=== PATIENT | male | born 1975 | race African-American/Black ===

== ENCOUNTER 2018-01-23 01:35 | Emergency (ER) | payer SELFPAY ==
[2018-01-23 03:01] LABS: Absolute Lymphocytes (CBC) 2.2 K/uL (0.7-4.9); Absolute Monocytes 0.7 K/uL (0.1-1.3); Absolute Neutrophil 5.5 K/uL (1.8-8.0); Basophils % 0.1 % (0-1.3); Hematocrit 43.6 % (39.6-49.0); Lymphocytes % 25.7 % (15.3-44.8); MCH 31.2 pg (27.0-35.0); MCV 91.3 fL (80-100); MPV 9.5 fL (7.6-11.3); Monocytes % 8.2 % (3.3-12.3); Protime INR 1.01; RBC Red Blood Cell Count 4.78 M/uL (4.33-5.43)
[2018-01-23 03:18] LABS: ALT/SGPT 46 U/L (12-78); AST/SGOT 19 U/L (15-37); Albumin 3.8 g/dL (3.4-5.0); Alkaline Phosphatase 64 U/L (45-117); BUN Blood Urea Nitrogen 12 mg/dL (7-18); Bicarbonate 27 mmol/L (21-32); Bilirubin Direct < 0.1 mg/dL (0-0.2); Bilirubin Total 0.3 mg/dL (0.2-1.0); Glucose Level 133 mg/dL (74-106); Lipase 127 U/L (73-393); Magnesium 2.3 mg/dL (1.8-2.4); NT PRO-BNP 9 pg/mL (<125); Potassium 3.4 mmol/L (3.5-5.1); Protein, Total 7.9 g/dL (6.4-8.2); Sodium Level 141 mmol/L (136-145); Troponin (Emerg Dept Use Only) < 0.02 ng/mL (0.0-0.045)
[2018-01-23] MEDS ORDERED: SUCRALFATE 1 GM TABLET ONE (03:36)
--- NOTE | 2018-01-23 04:01 | EDPHYS ---
Physician Documentation [facility] Name: Kishore Mcrae Age: 42 yrs Sex: Male : 1975 Arrival Date: 01/23/2018 Time: 01:39 Bed 19 Private MD: Florian Anne ED Physician Shawn Brenner HPI: 01/23 03:54 This 42 yrs old Black Male presents to ER via Ambulatory with complaints of High Blood gs Pressure, Abdominal Pain. 03:54 The patient presents with abdominal pain in the epigastric area. Onset: The gs symptoms/episode began/occurred this morning, at 01:00. The symptoms do not radiate. Associated signs and symptoms: Pertinent negatives: chest pain. The symptoms are described as sharp. Modifying factors: The symptoms are alleviated by nothing, the symptoms are aggravated by nothing. Severity of pain: At its worst the pain was moderate in the emergency department the pain has improved markedly. The patient has not experienced similar symptoms in the past. Historical: - Allergies: 01:51 No Known Allergies; jd3 - Home Meds: 01:51 metoprolol tartrate 100 mg Oral tab 1 tab once daily [Active]; quinapril 40 mg Oral tab jd3 1 tab once daily [Active]; hydrochlorothiazide 25 mg Oral tab 1 tab once daily [Active]; - PMHx: 01:51 Hypertension; jd3 - PSHx: 01:51 None; jd3 - Immunization history:: Adult Immunizations up to date, Flu vaccine is not up to date. - Social history:: Smoking status: Patient/guardian denies using tobacco. - Ebola Screening: : Patient negative for fever greater than or equal to 101.5 degrees Fahrenheit, and additional compatible Ebola Virus Disease symptoms. ROS: 03:54 All other systems are negative. gs Exam: 03:54 Head/Face: Normocephalic, atraumatic. Eyes: Pupils equal round and reactive to light, gs extra-ocular motions intact. Lids and lashes normal. Conjunctiva and sclera are non-icteric and not injected. Cornea within normal limits. Periorbital areas with no swelling, redness, or edema. ENT: Nares patent. No nasal discharge, no septal abnormalities noted. Tympanic membranes are normal and external auditory canals are clear. Oropharynx with no redness, swelling, or masses, exudates, or evidence of obstruction, uvula midline. Mucous membranes moist. Neck: Trachea midline, no thyromegaly or masses palpated, and no cervical lymphadenopathy. Supple, full range of motion without nuchal rigidity, or vertebral point tenderness. No Meningismus. Chest/axilla: Normal chest wall appearance and motion. Nontender with no deformity. No lesions are appreciated. Cardiovascular: Regular rate and rhythm with a normal S1 and S2. No gallops, murmurs, or rubs. Normal PMI, no JVD. No pulse deficits. Respiratory: Lungs have equal breath sounds bilaterally, clear to auscultation and percussion. No rales, rhonchi or wheezes noted. No increased work of breathing, no retractions or nasal flaring. Back: No spinal tenderness. No costovertebral tenderness. Full range of motion. Skin: Warm, dry with normal turgor. Normal color with no rashes, no lesions, and no evidence of cellulitis. MS/ Extremity: Pulses equal, no cyanosis. Neurovascular intact. Full, normal range of motion. Neuro: Awake and alert, GCS 15, oriented to person, place, time, and situation. Cranial nerves II-XII grossly intact. Motor strength 5/5 in all extremities. Sensory grossly intact. Cerebellar exam normal. Normal gait. 03:54 Constitutional: The patient appears alert, awake. 03:54 ECG was reviewed by the Attending Physician. 03:54 Abdomen/GI: Palpation: mild abdominal tenderness, in the epigastric area and right upper quadrant. Vital Signs: 01:51 BP 161 / 120; Pulse 57; Resp 16 S; Temp 98.3(O); Pulse Ox 99% on R/A; Weight 117.93 kg jd3 (R); Height 5 ft. 6 in. (167.64 cm) (R); Pain 4/10; 02:48 BP 161 / 88; Pulse 62; Resp 15 S; Pulse Ox 99% on R/A; jd3 03:30 BP 157 / 98; Pulse 59; Resp 17 S; Pulse Ox 98% on R/A; jd3 04:27 BP 143 / 93; Pulse 55; Resp 16 S; Pulse Ox 98% on R/A; jd3 01:51 Body Mass Index 41.96 (117.93 kg, 167.64 cm) jd3 MDM: 02:11 Patient medically screened. gs 03:54 Differential diagnosis: cholecystitis, Cholelithiasis, gastritis, gastroesophageal gs reflux disease, non-specific abd pain, pancreatitis. Data reviewed: vital signs, nurses notes. Response to treatment: the patient's symptoms have markedly improved after treatment, and as a result, I will discharge patient. 01/23 02:15 Order name: Basic Metabolic Panel; Complete Time: 03:53 01/23 02:15 Order name: CBC with Diff; Complete Time: 03:53 01/23 02:15 Order name: LFT's; Complete Time: 03:53 01/23 02:15 Order name: Magnesium; Complete Time: 03:53 01/23 02:15 Order name: NT PRO-BNP; Complete Time: 03:53 01/23 02:15 Order name: PT-INR; Complete Time: 03:11 01/23 02:15 Order name: Troponin (emerg Dept Use Only); Complete Time: 03:53 01/23 02:15 Order name: XRAY Chest (1 view) 01/23 02:15 Order name: EKG; Complete Time: 02:16 01/23 02:15 Order name: Cardiac monitoring; Complete Time: 02:25 01/23 02:15 Order name: Lipase; Complete Time: 03:53 01/23 02:15 Order name: CT Stone Protocol 01/23 02:15 Order name: EKG - Nurse/Tech; Complete Time: 02:25 01/23 02:15 Order name: IV Saline Lock; Complete Time: 02:36 01/23 02:15 Order name: Labs collected and sent; Complete Time: 02:36 01/23 02:15 Order name: O2 Per Protocol; Complete Time: 02:25 01/23 02:15 Order name: O2 Sat Monitoring; Complete Time: 02:25 gs EC:54 Rate is 52 beats/min. Rhythm is regular. LA interval is normal. QRS interval is gs prolonged. QT interval is normal. T waves are Flattened. Clinical impression: NSR w/ Non-specific ST/T Changes. Interpreted by me. Administered Medications: 03:32 Drug: CarafATE 1 grams Route: PO; jd3 04:30 Follow up: Response: No adverse reaction jd3 04:32 Follow up: Response: No adverse reaction jd3 04:31 Not Given (Physician Discretion): Enalaprilat 1.25 mg IV at calculated rate once; (slow jd3 IV push) Disposition: 01/23/18 04:01 Discharged to Home. Impression: Epigastric pain, Essential (primary) hypertension. - Condition is Stable. - Discharge Instructions: Abdominal Pain, Adult, Managing Your Hypertension. - Prescriptions for Carafate 100 mg/mL Oral suspension - take 10 milliliter by ORAL route 3 times per day As needed; 150 milliliter. - Medication Reconciliation Form, Thank You Letter, Antibiotic Education, Prescription Opioid Use form. - Follow up: Florian Anne MD; When: 1 - 2 days; Reason: Re-evaluation by your physician. Signatures: Dispatcher [employer] Shawn Christian MD MD gs Davies, Jonathon RN RN jd3 Corrections: (The following items were deleted from the chart) 04:31 04:01 01/23/2018 04:01 Discharged to Home. Impression: Epigastric pain; Essential jd3 (primary) hypertension. Condition is Stable. Forms are Medication Reconciliation Form, Thank You Letter, Antibiotic Education, Prescription Opioid Use. Follow up: Florian Anne; When: 1 - 2 days; Reason: Re-evaluation by your physician.
--- NOTE | 2018-01-23 04:01 | ER ---
Nurse's Notes [facility] Name: Kishore Mcrae Age: 42 yrs Sex: Male : 1975 Arrival Date: 01/23/2018 Time: 01:39 Bed 19 Private MD: Florian Anne Diagnosis: Epigastric pain;Essential (primary) hypertension Presentation: 01/23 01:47 Presenting complaint: Patient states: "I am having some upper stomach pain with some jd3 nausea and my blood pressure is high for some reason.". Transition of care: patient was not received from another setting of care. Onset of symptoms was January 23, 2018. Risk Assessment: Do you want to hurt yourself or someone else? Patient reports no desire to harm self or others. Initial Sepsis Screen: Does the patient meet any 2 criteria? No. Patient's initial sepsis screen is negative. Does the patient have a suspected source of infection? No. Patient's initial sepsis screen is negative. Care prior to arrival: None. 01:47 Method Of Arrival: Ambulatory jd3 01:47 Acuity: AZUL 3 jd3 Historical: - Allergies: 01:51 No Known Allergies; jd3 - Home Meds: 01:51 metoprolol tartrate 100 mg Oral tab 1 tab once daily [Active]; quinapril 40 mg Oral tab jd3 1 tab once daily [Active]; hydrochlorothiazide 25 mg Oral tab 1 tab once daily [Active]; - PMHx: 01:51 Hypertension; jd3 - PSHx: 01:51 None; jd3 - Immunization history:: Adult Immunizations up to date, Flu vaccine is not up to date. - Social history:: Smoking status: Patient/guardian denies using tobacco. - Ebola Screening: : Patient negative for fever greater than or equal to 101.5 degrees Fahrenheit, and additional compatible Ebola Virus Disease symptoms. Screenin:55 Abuse screen: Denies threats or abuse. Nutritional screening: No deficits noted. jd3 Tuberculosis screening: No symptoms or risk factors identified. Fall Risk Ambulatory Aid- None/Bed Rest/Nurse Assist (0 pts). Gait- Normal/Bed Rest/Wheelchair (0 pts) Mental Status- Oriented to own ability (0 pts). Total Carrasco Fall Scale indicates No Risk (0-24 pts). Assessment: 01:52 General: Appears uncomfortable, Behavior is calm, cooperative, appropriate for age. jd3 Pain: Complains of pain in epigastric area Pain currently is 4 out of 10 on a pain scale. at worst was 6 out of 10 on a pain scale. Quality of pain is described as aching. Neuro: Level of Consciousness is awake, alert, obeys commands, Oriented to person, place, time, situation. Cardiovascular: Denies chest pain, Capillary refill < 3 seconds Patient's skin is warm and dry. Respiratory: Airway is patent Respiratory effort is even, unlabored, Respiratory pattern is regular, symmetrical, Denies shortness of breath. GI: Abdomen is round non-distended, Bowel sounds present X 4 quads. Abd is soft and non tender X 4 quads. Reports upper abdominal pain, nausea, Patient currently denies constipation, diarrhea. : No signs and/or symptoms were reported regarding the genitourinary system. EENT: No signs and/or symptoms were reported regarding the EENT system. Derm: Skin is intact, Skin is dry, Skin is normal, Skin temperature is warm. Musculoskeletal: Circulation, motion, and sensation intact. Range of motion: intact in all extremities. 01:59 Reassessment: No changes from previously documented assessment. Patient and/or family jd3 updated on plan of care and expected duration. Pain level reassessed. Patient is alert, oriented x 3, equal unlabored respirations, skin warm/dry/pink. provider at bedside. 02:48 Reassessment: Patient appears in no apparent distress at this time. No changes from jd3 previously documented assessment. Patient and/or family updated on plan of care and expected duration. Pain level reassessed. Patient is alert, oriented x 3, equal unlabored respirations, skin warm/dry/pink. blood pressure medication held per providers order. will reassess blood pressure. 03:30 Reassessment: Patient appears in no apparent distress at this time. No changes from jd3 previously documented assessment. Patient and/or family updated on plan of care and expected duration. Pain level reassessed. Patient is alert, oriented x 3, equal unlabored respirations, skin warm/dry/pink. 04:30 Reassessment: Patient appears in no apparent distress at this time. No changes from jd3 previously documented assessment. Patient and/or family updated on plan of care and expected duration. Pain level reassessed. Patient is alert, oriented x 3, equal unlabored respirations, skin warm/dry/pink. reported understanding of discharge instructions. Vital Signs: 01:51 BP 161 / 120; Pulse 57; Resp 16 S; Temp 98.3(O); Pulse Ox 99% on R/A; Weight 117.93 kg jd3 (R); Height 5 ft. 6 in. (167.64 cm) (R); Pain 4/10; 02:48 BP 161 / 88; Pulse 62; Resp 15 S; Pulse Ox 99% on R/A; jd3 03:30 BP 157 / 98; Pulse 59; Resp 17 S; Pulse Ox 98% on R/A; jd3 04:27 BP 143 / 93; Pulse 55; Resp 16 S; Pulse Ox 98% on R/A; jd3 01:51 Body Mass Index 41.96 (117.93 kg, 167.64 cm) jd3 ED Course: 01:39 Patient arrived in ED. ds1 01:39 Florian Anne MD is Private Physician. ds1 01:41 Vazquez Frederick, OSITO is Primary Nurse. jd3 01:43 Shawn Brenner MD is Attending Physician. gs 01:48 Triage completed. jd3 01:52 Arm band placed on. jd3 01:55 Patient has correct armband on for positive identification. Bed in low position. Call jd3 light in reach. Side rails up X 1. Adult w/ patient. 02:25 EKG done, by ED staff, reviewed by Shawn Brenner MD. jd3 02:32 Inserted saline lock: 20 gauge in right antecubital area, using aseptic technique. jd3 Blood collected. 02:45 X-ray completed. Portable x-ray completed in exam room. Patient tolerated procedure kw well. 02:46 XRAY Chest (1 view) In Process Unspecified. EDMS 02:[address] via wheelchair. kw1 03:01 CT Stone Protocol In Process Unspecified. EDMS 03:03 CT completed. Patient tolerated procedure well. Patient moved back from CT. kw1 03:59 Florian Anne MD is Referral Physician. gs 04:28 No provider procedures requiring assistance completed. IV discontinued, intact, jd3 bleeding controlled, No redness/swelling at site. Pressure dressing applied. Administered Medications: 03:32 Drug: CarafATE 1 grams Route: PO; jd3 04:30 Follow up: Response: No adverse reaction jd3 04:32 Follow up: Response: No adverse reaction jd3 04:31 Not Given (Physician Discretion): Enalaprilat 1.25 mg IV at calculated rate once; (slow jd3 IV push) Outcome: 04:01 Discharge ordered by . remy 04:28 Discharged to home ambulatory, with family. jd3 04:28 Condition: stable 04:28 Discharge instructions given to patient, family, Instructed on discharge instructions, follow up and referral plans. medication usage, Demonstrated understanding of instructions, follow-up care, medications, Prescriptions given X 1. 04:31 Patient left the ED. jd3 Signatures: Dispatcher [employer] EDMS Mirta Madsen ds1 Martina Méndez Gregory, MD MD gs Davies, Jonathon, RN RN jd3 Sherrell Jensen1 Corrections: (The following items were deleted from the chart) 01:55 01:52 Cardiovascular: Denies chest pain, Capillary refill < 3 seconds Patient's skin is jd3 warm and dry. jd3 01:55 01:52 GI: Abdomen is round non-distended, Bowel sounds present X 4 quads. Abd is soft jd3 and non tender X 4 quads. Reports nausea, Patient currently denies constipation, diarrhea, jd3 02:52 02:48 Reassessment: Patient appears in no apparent distress at this time. No changes jd3 from previously documented assessment. Patient and/or family updated on plan of care and expected duration. Pain level reassessed. Patient is alert, oriented x 3, equal unlabored respirations, skin warm/dry/pink. jd3
--- NOTE | 2018-01-23 07:49 | RAD REPORT ---
EXAM DESCRIPTION: RAD - Chest Single View - 01/23/2018 2:45 am CLINICAL HISTORY: Abdominal pain COMPARISON: None. TECHNIQUE: AP portable chest image was obtained 0226 hours . FINDINGS: Lung volumes are low. No focal lung parenchymal process. No significant failure or volume overload. Heart and vasculature are normal. No measurable pleural effusion and no pneumothorax. No ac [place] bony abnormality seen. No acute aortic findings suspected. IMPRESSION: No acute cardiopulmonary process.
--- NOTE | 2018-01-23 07:52 | RAD REPORT ---
EXAM DESCRIPTION: CT - Stone Protocol - 01/23/2018 6:32 am CLINICAL HISTORY: Abdominal pain, hypertension A preliminary report was provided at the time of the study and reviewed prior to final report. COMPARISON: None. TECHNIQUE: Axial [address] imaging of the abdomen and pelvis was performed without IV contrast. No IV contrast was given because of allergy, abnormal renal function, patient refusal or physician re quest. Oral contrast was given. All CT scans are performed using dose optimization technique as appropriate and may include automated exposure control or mA/KV adjustment according to patient size. FINDINGS: Lower chest assessment is limited. No pericardial thickening or effusion. Liver shows fatty infiltration with liver upper size of normal. No focal liver lesion. Spleen and strauss creas show no acute findings. Gallbladder and biliary tree are also without suspicious finding. No hydronephrosis or suspicious renal mass. Minimal nodularity of the left adrenal gland. Isodense r enal masses and pyelonephritis cannot be excluded in the absence of IV contrast. The urinary bladder is without significant finding. No dilated bowel loops or bowel wall thickening. No free air, free fluid or inflammatory stranding. N o appendicitis findings. No mass or bulky lymphadenopathy. Small fat filled right inguinal hernia pre sent. Minimal left-sided colonic diverticulosis. No suspicious bony findings. IMPRESSION: Non-contrast enhanced CT abdomen and pelvis imaging show no significant or suspicious fi nding. Nonacute findings detailed in the body of the report. Full assessment is limited is the absence of IV contrast.
--- NOTE | 2018-01-23 10:02 | EKG ---
Test Date: 2018-01-23 Test Time: 02:21:02 Sports Instructor: ABDOUL MEASUREMENT RESULTS: Intervals: Rate: 52 WY: 176 QRSD: 104 QT: 444 QTc: 412 [place]: P: 10 WY: 176 QRS: 0 T: 20 INTERPRETIVE STATEMENTS: Sinus bradycardia Voltage criteria for left ventricular hypertrophy Nonspecific T wave abnormality Abnormal ECG Compared to ECG 11/30/2006 12:16:26 Left ventricular hypertrophy now present T-wave abnormality now present Sinus rhythm no longer present Electronically Signed On 01-23-18 10:01:53 CDT by Zaki Strong
== END 2018-01-23 04:31 | disposition home or self-care (01) ==
LOC: ER 01:35
DX: I10 Essential (primary) hypertension (principal)
CPT/HCPCS: 36415; 71045; 74176; 76377; 80048; 80076; 83690; 83735; 83880; 84484; 85025; 85610; 93005; 99284

== ENCOUNTER 2022-02-13 04:54 | Emergency (ER) | payer BC ==
--- OUTSIDE RECORDS SUMMARY | 2022-02-13 04:57 | XMS REPORT | Continuity of Care Document ---
:1975 Author Organization [facility] t Address [address] [place] [address] Care Team Providers Name Role Phone Loreto Jett Attending Clinician LORETO PUENTES Attending Clinician Unavailable Payers Payer Name Policy Type Policy Number Effective Date Expiration Date S ource Problems This patient has no known problems. Allergies, Adverse Reactions, Alerts Allergy Allergy Status Severity Reaction(s) Onset Inactive Treating Comm ents Source Name Type Date Date Clinician NO KNOWN Drug Active [facility] Social History Social Habit Start Date Stop Date Quantity Comments Source Exposure to Not sure [facility] SARS-CoV-2 (event) Medica l Branch Sex Assigned At [birth year] [facility] 00:00:00 00:00:00 [facility] Smoking Status Start Date Stop Date Source Unknown if ever smoked [facility] Medications Ordered Filled Start Stop Current Ordering Indication Dosage Frequency Signature Comments Components Source Medication Medication Date Date Medication? Clinician (SIG) Name Name FENTanyl PF 2020- No 50ug 50 mcg, Un arvind (SUBLIMAZE 5-30 05-30 Intramuscu it y of (PF)) 21:45: 20:42 lar, ONCE, [place] injection 00 :00 1 dose, Medical 50 mcg [facility] 09/07/20 at 1645, STAT acetaminoph 2020- No 4647 1{tbl} Take 1 U nivers en-codeine 5-30 06-05 tablet by ity of (TYLENOL-CO 00:00: 04:59 [place] DE[place] #3) 00 :00 every 6 Medical 300-30 mg (six) Branch tablet hours as needed for Pain (scale 7-10) for up to 5 days. Indication s: acute pain Vital Signs Vital Name Observation Time Observation Value Comments Source Systolic blood 2020-09-07 20:22:00 142 mm[Hg] Univer sity of pressure [facility] Diastolic blood 2020-09-07 20:22:00 91 mm[Hg] Unive rsity of [facility] Heart rate 2020-09-07 20:22:00 62 /min [facility] Body temperature 2020-09-07 20:22:00 37.17 Liz [facility] Res[facility] rate 2020-09-07 20:22:00 16 /min [facility] Body height 2020-09-07 20:22:00 167.6 cm [facility] Body weight 2020-09-07 20:22:00 72.576 kg [facility] BMI 2020-09-07 20:22:00 25.82 kg/m2 [facility] Oxygen saturation in 2020-09-07 20:22:00 98 /min [facility] Arterial blood by [facility] Pulse oximetry Branch Procedures Procedure Date / Time Performed Performing Clinician Sour e NOTICE OF PRIVACY 2020-09-07 20:16:47 Doctor Unassigned, No [facility] Name [facility] Branch CONSENT/REFUSAL FOR 2020-09-07 20:16:25 Doctor Unassigned, No Un [facility] DIAGNOSIS AND Name Medical Branch TREATMENT Encounters Start End Encounter Admission Attending Care Care Encounter Source Date/Time Date/Time Type Type Clinicians Facility Department ID 2020-09-07 2020-09-07 Emergency [facility] [id number] Univers 15:25:00 16:04:00 Loreto Hernandez [id number] i ty [facility] [id number] [facility] [id number] [facility] 084 Branch 2020-09-07 2020-09-07 [facility] [id number] Univers 15:17:00 15:17:00 LORETO pizarro [facility] Results This patient has no known results.
[2022-02-13 06:04] LABS: Urine Blood Negative (Negative); Urine Glucose Negative (Negative); Urine Protein Trace (Negative); Urine Specific Gravity >=1.030 (1.005-1.030)
[2022-02-13 06:07] LABS: Absolute Lymphocytes (CBC) 2.1 K/uL (0.7-4.9); Hematocrit 47.9 % (39.6-49.0); Lymphocytes % 27.3 % (15.3-44.8); MCV 90.6 fL (80-100); MPV 8.6 fL (7.6-11.3); RBC Red Blood Cell Count 5.28 M/uL (4.33-5.43)
[2022-02-13 06:14] LABS: Urine Mucus Slight /HPF (None Seen); Urine RBC <5 /HPF (None Seen)
[2022-02-13 06:30] LABS: Albumin 3.8 g/dL (3.4-5.0); Bilirubin Total 0.5 mg/dL (0.2-1.0); Potassium 3.4 mmol/L (3.5-5.1); Protein, Total 7.9 g/dL (6.4-8.2)
--- NOTE | 2022-02-13 06:31 | RAD REPORT ---
[facility] 6[facility]16 am CLINICAL HISTORY: Left flank pain COMPARISON: <Comparisons> TECHNIQUE: CT of the abdomen and pelvis was performed. All CT scans are performed using dose optimization technique as appropriate and may include automated exposure control or mA/KV adjustment according to patient size. FINDINGS: Lower chest: No acute abnormality. Liver: No acute abnormality or suspicious lesions. Biliary: No biliary ductal dilatation. Stomach: No significant focal abnormality. Duodenum: No significant focal abnormality. Pancreas: No significant abnormality. Spleen: No significant abnormality. Adrenal: No suspicious lesions. Kidney/ureter: No hydronephrosis. No renal calculi. Retroperitoneum: No retroperitoneal adenopathy. Vascular: No aneurysm. Bowel: Diverticulosis. Mild inflammatory changes are present in the left paracolic gutter associated with the descending colon.. Normal appendix. Peritoneum: No ascites or free air. Bladder: Grossly unremarkable. Reproductive: No adnexal masses. Bones: Sclerotic lesion in the right posterior acetabulum is unchanged since 2018 and benign. Other: n/a IMPRESSION: Diverticulitis versus epiploic appendagitis of the descending colon. No perforation or a bscess. No urinary tract calculi. Normal appendix.
[2022-02-13] MEDS ORDERED: CIPROFLOXACIN 400mg IV 400 MG/200 ML BAG IV ONE (06:43)
[2022-02-13] MEDS ORDERED: METRONIDAZOLE 500mg IVPB 500 MG/100 ML BAG IV ONE (06:44)
--- NOTE | 2022-02-13 06:52 | EDPHYS ---
Physician Documentation [facility] Name: Kishore Mcrae Age: 46 yrs Sex: Male : 1975 Arrival Date: 02/13/2022 Time: 04:59 Bed 2 Private MD: ED Physician Price Singer HPI: 02/13 05:52 This 46 yrs old Black Male presents to ER via Ambulatory with complaints of Flank Burn. sp3 05:52 46-year-old male with history of hypertension and hyperlipidemia presents with sp3 left-sided flank pain for approximately 48 hours which is worse upon ambulation and muscle movement. Patient denies any injury, strenuous physical activity, chest pain, shortness of breath, abdominal pain, nausea, vomiting, diarrhea, syncope, bleeding, fever, rash, known sick contacts, travel history, any other ROS at this time. Pain is described as dull and fleeting and hard to pinpoint. Pain lasts for seconds to minutes at a time before self diminishing. He denies any hematuria, urinary frequency, burning, discharge. No prior history of kidney stones noted.. Historical: - Allergies: 05:50 No Known Allergies; as6 - Home Meds: 05:50 quinapril 40 mg Oral tab 1 tab once daily [Active]; hydrochlorothiazide 25 mg Oral tab as6 1 tab once daily [Active]; metoprolol tartrate 100 mg Oral tab 1 tab once daily [Active]; amlodipine 10 mg tab 1 tab once daily [Active]; atorvastatin 20 mg oral tab 1 tab once daily [Active]; - PMHx: 05:50 Hypertension; Hypercholesterolemia; as6 - PSHx: 05:50 None; as6 - Immunization history:: Client reports having NOT received the Covid vaccine. - Social history:: Smoking status: Patient denies any tobacco usage or history of. ROS: 05:53 Constitutional: Negative for fever, chills, and weight loss, Eyes: Negative for injury, sp3 pain, redness, and discharge, ENT: Negative for injury, pain, and discharge, Neck: Negative for injury, pain, and swelling, Cardiovascular: Negative for chest pain, palpitations, and edema, Respiratory: Negative for shortness of breath, cough, wheezing, and pleuritic chest pain, MS/Extremity: Negative for injury and deformity, Skin: Negative for injury, rash, and discoloration, Neuro: Negative for headache, weakness, numbness, tingling, and seizure. 05:53 All other systems are negative. Exam: 05:53 Constitutional: This is a well developed, well nourished patient who is awake, alert, sp3 and in no acute distress. Head/Face: Normocephalic, atraumatic. Eyes: Pupils equal round and reactive to light, extra-ocular motions intact. Lids and lashes normal. Conjunctiva and sclera are non-icteric and not injected. Cornea within normal limits. Periorbital areas with no swelling, redness, or edema. ENT: Nares patent. No nasal discharge, no septal abnormalities noted. External auditory canals are clear. Oropharynx with no redness, swelling, or masses, exudates, or evidence of obstruction, uvula midline. Mucous membranes moist. Neck: Trachea midline, no thyromegaly or masses palpated, and no cervical lymphadenopathy. Supple, full range of motion without nuchal rigidity, or vertebral point tenderness. No Meningismus. Chest/axilla: Normal chest wall appearance and motion. Nontender with no deformity. No lesions are appreciated. Cardiovascular: Regular rate and rhythm with a normal S1 and S2. No gallops, murmurs, or rubs. Normal PMI, no JVD. No pulse deficits. Respiratory: Lungs have equal breath sounds bilaterally, clear to auscultation and percussion. No rales, rhonchi or wheezes noted. No increased work of breathing, no retractions or nasal flaring. Abdomen/GI: Soft, non-tender, with normal bowel sounds. No distension or tympany. No guarding or rebound. No evidence of tenderness throughout. Back: No spinal tenderness. No costovertebral tenderness. Full range of motion. Skin: Warm, dry with normal turgor. Normal color with no rashes, no lesions, and no evidence of cellulitis. MS/ Extremity: Pulses equal, no cyanosis. Neurovascular intact. Full, normal range of motion. Neuro: Awake and alert, GCS 15, oriented to person, place, time, and situation. Cranial nerves II-XII grossly intact. Motor strength 5/5 in all extremities. Sensory grossly intact. Cerebellar exam normal. Normal gait. Vital Signs: 05:45 BP 138 / 96; Pulse 67; Resp 16 S; Temp 98.2(O); Pulse Ox 96% on R/A; Weight 120.2 kg as6 (R); Height 5 ft. 6 in. (167.64 cm) (R); Pain 7/10; 06:34 BP 132 / 91; Pulse 56; Resp 18 S; Pulse Ox 99% on R/A; as6 07:51 BP 131 / 67; Pulse 59; Resp 18; Temp 97.8; Pulse Ox 100% on R/A; ph 05:45 Body Mass Index 42.77 (120.20 kg, 167.64 cm) as6 MDM: 05:43 Patient medically screened. sp3 05:53 Data reviewed: vital signs, nurses notes. ED course: 46-year-old male with left-sided sp3 flank pain. Differential diagnosis includes kidney stone, UTI, pyelonephritis, reticulitis, combination of aformentioned diagnoses, muscular strain, pleurisy, functional abdominal pain. Work-up will include CT scan of the abdomen and pelvis noncontrast stone protocol, laboratory values, urinalysis, and pain control as needed. If work-up is negative, will discharge patient home with muscle strain she is unknown pain diagnosis. Infectious and/or obstructive pathologies will be treated as indicated on this high complexity patient.. 06:49 ED course: CT demonstrates diverticulitis in the descending colon in the absence of sp3 kidney stones. Blood work reviewed and demonstrates low critical abnormality. We will administer ciprofloxacin and Flagyl IV and discharge patient home on p.o. forms with follow-up with his PCP and/or GI specialist as needed. No further intervention needed and is high complexity patient and patient's and spouse's questions have all been answered.. 02/13 05:25 Order name: CBC with Diff; Complete Time: 06:38 kdr 02/13 05:25 Order name: CMP; Complete Time: 06:38 kdr 02/13 05:25 Order name: Lipase; Complete Time: 06:38 kdr 02/13 05:42 Order name: Urine Microscopic Only; Complete Time: 06:38 sp3 02/13 06:04 Order name: Urine Dipstick-Ancillary; Complete Time: 06:38 EDMS 02/13 05:25 Order name: IV Saline Lock; Complete Time: 05:58 kdr 02/13 05:25 Order name: Labs collected and sent; Complete Time: 05:58 kdr 02/13 05:42 Order name: Urine Dipstick-Ancillary (obtain specimen); Complete Time: 06:20 sp3 02/13 05:45 Order name: CT Stone Protocol; Complete Time: 06:38 sp3 Administered Medications: 06:52 Drug: Flagyl (metroNIDAZOLE) 500 mg Volume: 100 ml; Route: IVPB; Rate: 200 ml/hr; as6 Infused Over: 30 mins; Site: right antecubital; 07:53 Follow up: Response: No adverse reaction; IV Status: Completed infusion ph 07:29 Drug: Cipro (ciprofloxacin) 400 mg Volume: 200 ml; Route: IVPB; Infused Over: 60 mins; ph Site: right antecubital; 08:40 Follow up: Response: No adverse reaction; IV Status: Completed infusion ph Disposition Summary: 02/13/22 06:51 Discharge Ordered Location: Home sp3 Condition: Stable sp3 Diagnosis - Diverticulitis sp3 Followup: sp3 - With: Private Physician - When: Upon discharge from the Emergency Department - Reason: Continuance of care Discharge Instructions: - Discharge Summary Sheet sp3 - Diverticulitis sp3 Forms: - Medication Reconciliation Form sp3 - Thank You Letter sp3 - Antibiotic Education sp3 - Prescription Opioid Use sp3 Prescriptions: - Flagyl 500 mg Oral Tablet - take 1 tablet by ORAL route every 8 hours for 7 days; 21 tablet; Refills: 0, sp3 Product Selection Permitted - Cipro 500 mg Oral Tablet - take 1 tablet by ORAL route every 12 hours for 7 days; 14 tablet; Refills: 0, sp3 Product Selection Permitted Signatures: Dispatcher [employer] [facility] Mingo Betts MD MD kdr Hall, Patricia RN RN Price Singer MD MD sp3 Johnnie Felton RN RN as6 Corrections: (The following items were deleted from the chart) 05:53 05:43 Abdomen Pelvis Wo [id number] ordered. [facility] 06:50 05:53 ED course: 46-year-old male with left-sided flank pain. Differential diagnosis sp3 includes kidney stone, UTI, pyelonephritis, combination of after mentioned diagnoses, muscular strain, pleurisy, functional abdominal pain. Work-up will include CT scan of the abdomen and pelvis noncontrast stone protocol, laboratory values, urinalysis, and pain control as needed. If work-up is negative, will discharge patient home with muscle strain she is unknown pain diagnosis. Infectious and/or obstructive pathologies will be treated as indicated on this high complexity patient.. sp3
--- NOTE | 2022-02-13 06:52 | ER ---
Nurse's Notes [facility] Name: Kishore Mcrae Age: 46 yrs Sex: Male : 1975 Arrival Date: 02/13/2022 Time: 04:59 Bed 2 Private MD: Diagnosis: Diverticulitis Presentation: 02/13 05:45 Chief complaint: Patient states: "I have a sharp pain on the left side of my back". as6 Coronavirus screen: At this time, the client does not indicate any symptoms associated with coronavirus-19. Ebola Screen: No symptoms or risks identified at this time. Initial Sepsis Screen: Does the patient meet any 2 criteria? No. Patient's initial sepsis screen is negative. Does the patient have a suspected source of infection? No. Patient's initial sepsis screen is negative. Risk Assessment: Do you want to hurt yourself or someone else? Patient reports no desire to harm self or others. Onset of symptoms was February 12, 2022. 05:45 Method Of Arrival: Ambulatory as6 05:45 Acuity: AZUL 3 as6 Historical: - Allergies: 05:50 No Known Allergies; as6 - Home Meds: 05:50 quinapril 40 mg Oral tab 1 tab once daily [Active]; hydrochlorothiazide 25 mg Oral tab as6 1 tab once daily [Active]; metoprolol tartrate 100 mg Oral tab 1 tab once daily [Active]; amlodipine 10 mg tab 1 tab once daily [Active]; atorvastatin 20 mg oral tab 1 tab once daily [Active]; - PMHx: 05:50 Hypertension; Hypercholesterolemia; as6 - PSHx: 05:50 None; as6 - Immunization history:: Client reports having NOT received the Covid vaccine. - Social history:: Smoking status: Patient denies any tobacco usage or history of. Screenin:35 Abuse screen: Denies threats or abuse. Denies injuries from another. Nutritional as6 screening: No deficits noted. Tuberculosis screening: No symptoms or risk factors identified. Fall Risk None identified. Assessment: 05:55 General: Appears in no apparent distress. Behavior is calm, cooperative. Pain: as6 Complains of pain in left flank Quality of pain is described as sharp. : Reports pain in left flank(s), Denies burning with urination, inability to void. 06:35 General: no complaints or concerns at this time. as6 06:52 General: discharge pending antibiotic completion . as6 07:15 Reassessment: Patient appears in no apparent distress at this time. Patient and/or ph family updated on plan of care and expected duration. Pain level reassessed. Patient is alert, oriented x 3, equal unlabored respirations, skin warm/dry/pink. D/C pending completion of IV antibiotics, pt resting comfortably w/ family at bedside. Vital Signs: 05:45 BP 138 / 96; Pulse 67; Resp 16 S; Temp 98.2(O); Pulse Ox 96% on R/A; Weight 120.2 kg as6 (R); Height 5 ft. 6 in. (167.64 cm) (R); Pain 7/10; 06:34 BP 132 / 91; Pulse 56; Resp 18 S; Pulse Ox 99% on R/A; as6 07:51 BP 131 / 67; Pulse 59; Resp 18; Temp 97.8; Pulse Ox 100% on R/A; ph 05:45 Body Mass Index 42.77 (120.20 kg, 167.64 cm) as6 ED Course: 04:59 Patient arrived in ED. ja2 05:25 Mingo Betts MD is Attending Physician. kdr 05:38 Grazyna Naik PA-C is PHCP. sb4 05:39 Attending Physician role handed off by Mingo Betts MD sp3 05:39 Price Singer MD is Attending Physician. sp3 05:41 Johnnie Felton, OSITO is Primary Nurse. as6 05:50 Triage completed. as6 05:51 Arm band placed on. as6 05:55 Inserted saline lock: 20 gauge in right antecubital area, using aseptic technique. as6 Blood collected. 05:58 CBC with Diff Sent. as6 05:59 CMP Sent. as6 05:59 Lipase Sent. as6 06:18 CT Stone Protocol In Process Unspecified. EDMS 06:35 Bed in low position. Call light in reach. Side rails up X 1. as6 07:52 No provider procedures requiring assistance completed. ph 08:41 IV discontinued, intact, bleeding controlled, No redness/swelling at site. Pressure ph dressing applied. Administered Medications: 06:52 Drug: Flagyl (metroNIDAZOLE) 500 mg Volume: 100 ml; Route: IVPB; Rate: 200 ml/hr; as6 Infused Over: 30 mins; Site: right antecubital; 07:53 Follow up: Response: No adverse reaction; IV Status: Completed infusion ph 07:29 Drug: Cipro (ciprofloxacin) 400 mg Volume: 200 ml; Route: IVPB; Infused Over: 60 mins; ph Site: right antecubital; 08:40 Follow up: Response: No adverse reaction; IV Status: Completed infusion ph Medication: 06:35 VIS not applicable for this client. as6 Outcome: 06:51 Discharge ordered by MD. rivers 08:41 Discharged to home ambulatory, with significant other. ph 08:41 Condition: good 08:41 Discharge instructions given to patient, Instructed on discharge instructions, follow up and referral plans. medication usage, Demonstrated understanding of instructions, follow-up care, medications. 08:41 Patient left the ED. ph Signatures: Dispatcher [employer] EDMS Mingo Betts MD MD [facility] Sandhya Kennedy RN RN Price Singer MD MD sp3 Alexander, Jessica ja2 Slawson, Ashby, RN RN as6 Grazyna Naik, PA-C PA-C sb4
[2022-02-13 09:06] VITALS: BP 131/67; TEMP 97.8; O2SAT 100
== END 2022-02-13 08:41 | disposition home or self-care (01) ==
LOC: ER 04:54
DX: K57.32 Diverticulitis of large intestine without perforation or abscess without bleeding (principal); I10 Essential (primary) hypertension; E78.00 Pure hypercholesterolemia, unspecified
CPT/HCPCS: 96365; 85025; 36415; 83690; 80053; 76377; 74176; 99284; J0744; 81003; 81015